=== PATIENT | male | born 1950 | race Asian ===

== ENCOUNTER → 2021-06-15 | Outpatient (CLI) | payer MEDICARE, OTHER | END | disposition home or self-care (01) | LOC: RADMN 08:06 | PROVIDERS: ATTEND Physical Medicine & Rehabilitation Spinal Cord Injury Medicine | DX: S83.241A Other tear of medial meniscus, current injury, right knee, initial encounter (principal); M25.461 Effusion, right knee; M65.861 Other synovitis and tenosynovitis, right lower leg; M25.861 Other specified joint disorders, right knee; M17.11 Unilateral primary osteoarthritis, right knee; M51.16 Intervertebral disc disorders with radiculopathy, lumbar region; M48.061 Spinal stenosis, lumbar region without neurogenic claudication; M48.07 Spinal stenosis, lumbosacral region; G95.19 Other vascular myelopathies; M50.123 Cervical disc disorder at C6-C7 level with radiculopathy; M48.02 Spinal stenosis, cervical region; M48.03 Spinal stenosis, cervicothoracic region; M25.572 Pain in left ankle and joints of left foot; M79.642 Pain in left hand; M79.641 Pain in right hand; X58.XXXA Exposure to other specified factors, initial encounter; Y93.89 Activity, other specified; Y92.89 Other specified places as the place of occurrence of the external cause; Y99.8 Other external cause status | CPT/HCPCS: 72141; 72148; 73721; 73130-TC; 73610-TC ==

== ENCOUNTER → 2022-06-01 | Outpatient (CLI) | payer MEDICARE, OTHER | END | disposition home or self-care (01) | LOC: RADMN 09:28 | PROVIDERS: ATTEND Physical Medicine & Rehabilitation Spinal Cord Injury Medicine | DX: R41.3 Other amnesia (principal); R42 Dizziness and giddiness; Z87.820 Personal history of traumatic brain injury | CPT/HCPCS: 70551 ==